=== PATIENT | female | born 1985 | race Caucasian/White ===

== ENCOUNTER 2023-03-18 06:48 | Day surgery (SDC) | payer BC ==
[~2023-03-18 06:48] MED LIST: Lactated Ringers 1,000 ML IV SCH
[2023-03-18 07:17] LABS: HEMATOCRIT 41.9 % (36.0-46.0); MEAN CORPUSCULAR HEMOGLOBIN 31.3 pg (27.0-32.0); MEAN CORPUSCULAR HGB CONC 33.4 g/dL (31.0-37.0); MEAN CORPUSCULAR VOLUME 93.5 fL (80.0-98.0); RED BLOOD CELL COUNT 4.48 M/uL (4.30-5.90); WHITE BLOOD CELL COUNT,WBC 7.36 K/uL (4.0-11.0)
[2023-03-18] MEDS ORDERED: Iodine/Potassium Iodide 5% Solution 14 ML Bottle ONE (07:21)
[2023-03-18] MEDS ORDERED: Lidocaine 1% 20 ML MDV ONE (07:21)
[2023-03-18] MEDS ORDERED: Lidocaine 1% with EPINEPHrine 1:100,000 50 ML MDV ONE (07:21)
[2023-03-18] MEDS ORDERED: fentaNYL 50 MCG/ML SDV IVPUSH PRN (07:24)
[2023-03-18] MEDS ORDERED: Morphine 2 MG/ML SYRINGE IVPUSH PRN (07:24)
[2023-03-18] MEDS ORDERED: droPERidol 5 MG/2 ML SDV IVPUSH PRN (07:24)
[2023-03-18] MEDS ORDERED: HYDROmorphone 1 MG/ML Syringe IVPUSH PRN (07:24)
[2023-03-18] MEDS ORDERED: Ondansetron 4 MG/2 ML SDV IVPUSH PRN (07:24)
[2023-03-18] MEDS ORDERED: Metoclopramide 10 MG/2 ML SDV IVPUSH PRN (07:24)
[2023-03-18] MEDS ORDERED: Naloxone 0.4 MG/ML SDV IVPUSH PRN (07:24)
[2023-03-18] MEDS ORDERED: Albuterol 0.083% 2.5 MG/3 ML Neb Soln NEB PRN (07:24)
[2023-03-18] MEDS ORDERED: Ferric Subsulfate Topical Soln 8 GM (8 ML) Bottle ONE (07:25)
[2023-03-18] MEDS ORDERED: fentaNYL 100 MCG/2 ML SDV ONE (07:31)
[2023-03-18] MEDS ORDERED: Morphine 10 MG/ML SDV ONE (07:32)
[2023-03-18] MEDS ORDERED: Ondansetron 4 MG/2 ML SDV ONE ×3 (07:36→07:40)
[2023-03-18] MEDS ORDERED: propofoL 100 ML ONE (07:37)
[2023-03-18] MEDS ORDERED: Metoclopramide 10 MG/2 ML SDV ONE (07:40)
[2023-03-18] MEDS ORDERED: Lidocaine 2% 5 ML SDV ONE (07:42)
== END 2023-03-18 10:05 | disposition home or self-care (01) ==
LOC: MW.SDS 06:48
PROVIDERS: ATTEND Obstetrics & Gynecology
DX: N87.1 Moderate cervical dysplasia (principal); F32.A Depression, unspecified; F41.9 Anxiety disorder, unspecified; F43.10 Post-traumatic stress disorder, unspecified; Z79.899 Other long term (current) drug therapy; Z88.0 Allergy status to penicillin; Z90.721 Acquired absence of ovaries, unilateral
CPT/HCPCS: 36415; 57522; 84703; 85027; A9270; J0131; J2270; J2405; J2704; J2765; J3010; J7120; J3490

== ENCOUNTER 2023-11-15 13:29 | Emergency (ER) | payer SELFPAY ==
[2023-11-15 13:51] LABS: BASOPHILS ABSOLUTE AUTO 0.02 K/uL (0.00-0.20); BASOPHILS PERCENT AUTO 0.2 % (0.0-1.0); EOSINOPHILS ABSOLUTE AUTO 0.06 K/uL (0.00-0.45); EOSINOPHILS PERCENT AUTO 0.6 % (0.0-6.0); HEMATOCRIT 38.8 % (37.0-47.0); HEMOGLOBIN 13.5 g/dL (12.0-16.0); IMMATURE GRAN ABSOLUTE AUTO 0.03 K/uL (0.00-0.05); IMMATURE GRAN PERCENT AUTO 0.3 % (0.0-0.4); LYMPHOCYTES ABSOLUTE AUTO 1.31 K/uL (1.00-4.80); LYMPHOCYTES PERCENT AUTO 12.8 % (24.0-44.0); MEAN CORPUSCULAR HEMOGLOBIN 31.2 pg (28.0-32.0); MEAN CORPUSCULAR HGB CONC 34.8 g/dL (32.0-36.0); MEAN CORPUSCULAR VOLUME 89.6 fL (83.0-99.0); MEAN PLATELET VOLUME 9.9 fL (9.4-12.3); MONOCYTES ABSOLUTE AUTO 0.41 K/uL (0.00-0.80); NEUTROPHILS PERCENT AUTO 82.1 % (41.0-71.0); PLATELET COUNT,PLT 224 K/uL (150-400); RED BLOOD CELL COUNT 4.33 M/uL (4.10-5.30); WHITE BLOOD CELL COUNT,WBC 10.23 K/uL (3.9-11.3)
[2023-11-15 14:56] LABS: A/G RATIO 0.9 (0.9-1.6); ALBUMIN 3.3 g/dL (3.4-5.0); BILIRUBIN TOTAL 0.2 mg/dL (0.2-1.0); CALCIUM 8.6 mg/dL (8.5-10.1); CARBON DIOXIDE,CO2 26.3 mmol/L (21.0-32.0); CREATININE 0.8 mg/dL (0.6-1.0); EST CRCL DRUG DOSING (CG) 85.8 mL/min; POTASSIUM,K 3.8 mmol/L (3.5-5.1); PROTEIN TOTAL,TP 6.9 g/dL (6.4-8.2)
== END 2023-11-15 15:55 | disposition home or self-care (01) ==
LOC: MW.ED 13:29
DX: O20.0 Threatened abortion (principal); Z3A.01 Less than 8 weeks gestation of pregnancy; Z88.0 Allergy status to penicillin; Z79.899 Other long term (current) drug therapy; Z75.8 Other problems related to medical facilities and other health care
CPT/HCPCS: 36415; 76817; 76817-26; 80053; 84702; 85025; 86900; 86901; 99283; 99284

== ENCOUNTER 2024-06-10 23:27 | Inpatient (IN) | payer BC ==
[2024-06-11] MEDS ORDERED: Sodium Chloride 0.9% 10 ML Syringe FLUSH PRN (01:07)
[2024-06-11] MEDS ORDERED: Carboprost Tromethamine 250 MCG/1 mL Vial IM PRN (01:07)
[2024-06-11] MEDS ORDERED: Water For Irrigation,Sterile 1,000 ML Container IRR PRN (01:07)
[2024-06-11] MEDS ORDERED: Methylergonovine 0.2 MG/1 ML Amp IM PRN ×2 (01:07→12:17)
[2024-06-11] MEDS ORDERED: Sodium Chloride 0.9% 2.5 ML Syringe FLUSH PRN (01:07)
[2024-06-11] MEDS ORDERED: Tranexamic Acid in NACL,ISO-OS 1,000 MG in Premix Bag 1 BAG IV PRN (01:07)
[2024-06-11] MEDS ORDERED: Lidocaine 1% 50 ML MDV INJECT PRN (01:07)
[2024-06-11] MEDS ORDERED: Ondansetron 4 MG/2 ML SDV IVPUSH PRN ×4 (01:07→12:17)
[2024-06-11] MEDS ORDERED: Butorphanol 2 MG/ML SDV IVPUSH PRN (01:07)
[2024-06-11] MEDS ORDERED: Misoprostol 200 MCG Tab PO PRN (01:07)
[2024-06-11] MEDS ORDERED: Oxytocin/0.9 % Sodium Chloride 30 UNIT/500 ML BAG IV SCH (01:15)
[2024-06-11] MEDS: Ampicillin 2 GM in Sodium Chloride 0.9% 100 ML IV ONE (01:45)
[2024-06-11] MEDS: Lactated Ringers 1,000 ML IV SCH (01:46)
[2024-06-11 02:00] LABS: HEMATOCRIT 18.9 % (37.0-47.0); HEMOGLOBIN 6.4 g/dL (12.0-16.0); MEAN CORPUSCULAR HEMOGLOBIN 31.1 pg (28.0-32.0); MEAN CORPUSCULAR HGB CONC 33.9 g/dL (32.0-36.0); MEAN CORPUSCULAR VOLUME 91.7 fL (83.0-99.0); MEAN PLATELET VOLUME 11.6 fL (9.4-12.3); NRBC ABSOLUTE 0.02 K/uL (0.00-0.02); NRBC PERCENT 0.1 /100WBC (0.0-0.2); PLATELET COUNT,PLT 214 K/uL (150-400); RED BLOOD CELL COUNT 2.06 M/uL (4.10-5.30)
[2024-06-11 05:37] LABS: HEMATOCRIT 32.4 % (37.0-47.0); HEMOGLOBIN 10.7 g/dL (12.0-16.0); MEAN CORPUSCULAR HEMOGLOBIN 30.3 pg (28.0-32.0); MEAN CORPUSCULAR VOLUME 91.8 fL (83.0-99.0); MEAN PLATELET VOLUME 11.3 fL (9.4-12.3); NRBC ABSOLUTE 0.02 K/uL (0.00-0.02); NRBC PERCENT 0.2 /100WBC (0.0-0.2); PLATELET COUNT,PLT 165 K/uL (150-400); RED BLOOD CELL COUNT 3.53 M/uL (4.10-5.30)
[2024-06-11] MEDS: Ampicillin 1 GM in Sodium Chloride 0.9% 50 ML IV SCH (05:53)
[2024-06-11] MEDS ORDERED: ePHEDrine 50 MG/ML SDV IVPUSH PRN (07:21)
[2024-06-11] MEDS ORDERED: Phenylephrine HCl In 0.9% NaCl 1 MG/10 ML Syringe IVPUSH PRN ×2 (07:21→10:08)
[2024-06-11] MEDS ORDERED: Ropivacaine HCl/PF 400 MG in Premix Bag 1 BAG EPIDUR SCH (07:30)
[2024-06-11] MEDS ORDERED: dexmedeTOMIDine HCl 200 MCG/2 ML SDV EPIDUR SCH (07:30)
[2024-06-11] MEDS ORDERED: Dexamethasone 4 MG/ML 5 ML MDV ONE (09:38)
[2024-06-11] MEDS ORDERED: Morphine PF 10 MG/10 ML SDV ONE (09:38)
[2024-06-11] MEDS ORDERED: Ondansetron 4 MG/2 ML SDV ONE (09:38)
[2024-06-11] MEDS ORDERED: dexmedeTOMIDine HCl 200 MCG/2 ML SDV ONE (09:38)
[2024-06-11] MEDS ORDERED: fentaNYL 100 MCG/2 ML SDV ONE (09:38)
[2024-06-11] MEDS ORDERED: ePHEDrine 50 MG/ML SDV ONE (09:38)
[2024-06-11] MEDS ORDERED: Oxytocin 10 Units/1 ML SDV ONE ×2 (09:38→11:26)
[2024-06-11] MEDS ORDERED: Tranexamic Acid 1,000 MG/10 ML Vial ONE (09:38)
[2024-06-11] MEDS ORDERED: ceFAZolin 2 GM Vial ONE (09:38)
[2024-06-11] MEDS ORDERED: Ropivacaine 0.5% 5 MG/ML 30 ML SDV ONE (09:38)
[2024-06-11] MEDS ORDERED: Calcium Chloride 10% 1 GM/10 ML Syringe ONE (09:38)
[2024-06-11] MEDS ORDERED: Water For Injection, Sterile 20 ML ONE (09:44)
[2024-06-11] MEDS ORDERED: Phenylephrine 1% 10 MG/ML SDV ONE (09:45)
[2024-06-11] MEDS ORDERED: Lidocaine 2% 5 ML SDV ONE (09:52)
[2024-06-11] MEDS ORDERED: Naloxone 0.4 MG/ML SDV IVPUSH PRN (10:08)
[2024-06-11] MEDS ORDERED: diphenhydrAMINE 50 MG/ML SDV IVPUSH PRN ×2 (10:08→12:17)
[2024-06-11] MEDS ORDERED: fentaNYL 50 MCG/ML SDV IVPUSH PRN (10:08)
[2024-06-11] MEDS ORDERED: Metoclopramide 10 MG/2 ML SDV IVPUSH PRN (10:08)
[2024-06-11] MEDS ORDERED: Acetaminophen/oxyCODONE 325-5 MG Tab PO PRN (10:08)
[2024-06-11] MEDS ORDERED: HYDROmorphone 1 MG/ML Syringe IVPUSH PRN (10:08)
[2024-06-11] MEDS ORDERED: Albuterol 0.083% 2.5 MG/3 ML Neb Soln NEB PRN (10:08)
[2024-06-11] MEDS ORDERED: Nalbuphine 10 MG/1 ML Vial IVPUSH PRN (10:08)
[2024-06-11] MEDS ORDERED: fentaNYL 100 MCG/2 ML SDV IVPUSH PRN (10:08)
[2024-06-11] MEDS ORDERED: Morphine 2 MG/ML SYRINGE IVPUSH PRN (10:08)
[2024-06-11] MEDS ORDERED: ceFAZolin 2 GM in Sodium Chloride 0.9% 50 ML IV ONE (10:30)
[2024-06-11] MEDS ORDERED: Propofol 200 MG/20 ML SDV ONE (11:19)
[2024-06-11] MEDS ORDERED: Oxytocin 10 Units/1 ML SDV IM PRN (12:17)
[2024-06-11] MEDS ORDERED: Lanolin 100% Cream 7 GM Tube TOP PRN (12:17)
[2024-06-11] MEDS ORDERED: Bisacodyl 10 MG Supp RECTAL PRN (12:17)
[2024-06-11] MEDS ORDERED: Misoprostol 200 MCG Tab RECTAL PRN (12:17)
[2024-06-11] MEDS ORDERED: Ibuprofen 800 MG Tab PO PRN (12:17)
[2024-06-11] MEDS ORDERED: Ketorolac 30 MG/ML SDV IVPUSH SCH (12:30)
[2024-06-11] MEDS ORDERED: Lactated Ringers 1,000 ML IV SCH (12:30)
[2024-06-11 13:28] LABS: PH,UMBILICAL ARTERIAL 7.242 (7.18-7.38); PH,UMBILICAL VENOUS 7.349 (7.25-7.45)
[2024-06-11] MEDS: Acetaminophen 1,000 MG in Premix Bag 1 BAG IV SCH ×2 (14:50→21:20)
[2024-06-11] MEDS: Ketorolac 30 MG/ML SDV IVPUSH SCH (15:34)
[2024-06-11 19:31] LABS: GROUP B STREP BY PCR POSITIVE (NEGATIVE)
[2024-06-11] MEDS: Docusate Sodium 100 MG Cap PO SCH (21:17)
[2024-06-12] MEDS: Simethicone 80 MG Tab.Chew PO SCH (00:58)
[2024-06-12 06:37] LABS: HEMATOCRIT 26.3 % (37.0-47.0); HEMOGLOBIN 8.4 g/dL (12.0-16.0)
[2024-06-12] MEDS: Acetaminophen/oxyCODONE 325-5 MG Tab PO PRN ×2 (17:59→23:38)
[2024-06-13] MEDS: Ibuprofen 800 MG Tab PO PRN (12:05)
== END 2024-06-13 14:50 | disposition home or self-care (01) | DRG 540 ==
LOC: MW.OBCHECK 23:27 → MW.OB 23:27 → MW.OBCHECK 06-11 01:05 → MW.OB 06-11 01:05 → OBSVTOIN 06-11 12:17 → MW.OB 06-11 17:22
PROVIDERS: ADMIT Obstetrics & Gynecology; ATTEND Obstetrics & Gynecology
PROC: 10D00Z1 Extraction of Products of Conception, Low, Open Approach (ICD-10-PCS; principal; 2024-06-11 12:00)
DX: O42.02 Full-term premature rupture of membranes, onset of labor within 24 hours of rupture (principal); O34.211 Maternal care for low transverse scar from previous cesarean delivery; O40.3XX0 Polyhydramnios, third trimester, not applicable or unspecified; O99.824 Streptococcus B carrier state complicating childbirth; O99.344 Other mental disorders complicating childbirth; F32.A Depression, unspecified; Z3A.37 37 weeks gestation of pregnancy; Z37.0 Single live birth
CPT/HCPCS: 36415; 59025; 82803; 84112; 85014; 85018; 85027; 86592; 86850; 86900; 86901; 87653; A9270-GY; J0131; J0290; J0690; J1100; J1885; J2274; J2371; J2405; J2590; J2704; J2795; J3010; J3490; J7120